=== PATIENT | male | born 1960 | race Two or more races ===

== ENCOUNTER 2018-01-22 23:18 | Emergency (ER) | payer BC ==
[~2018-01-22] VITALS: Ht 170.2 cm; Wt 90.7 kg
[~2018-01-22 23:18] MED LIST: ACYCLOVIR800 MG ORAL; AUGMENTIN 875-1 EAC1 ORAL; CIPRO500 MG/51 PO; CLINDAMYCIN HC300 MG ORAL; CLOTRIMAZOLE15 GM TOPIC; NKM; NORCO 5-325 TA1 EACH ORAL
[2018-01-22 23:50] VITALS: BP 120/83
[2018-01-23] MEDS ORDERED: AUGMENTIN 500-1 EACH ORAL (00:40)
[2018-01-23 00:49] VITALS: BP 0/0
--- NOTE | 2018-01-23 04:18 | Emergency Room Report ---
History of Present Illness General Chief Complaint: General Complaint Source: Patient Present Illness HPI Patient's a 57-year-old male who presented after increased discomfort to his left small finger. The patient reported having a splinter from a wooden frame which went through his finger. Patient denies any distal numbness or tingling. Injury occurred just prior to arrival. Patient denies any other locations of pain. He is unsure as to his last tetanus vaccine. Allergies: Coded Allergies: No Known Allergies (Unverified , 04/27/14) Patient History Reviewed Nursing Documentation: PMH: Agreed; PSxH: Agreed Nursing Documentation-PM Past Medical History: No Stated History Hx Cardiac Problems: No Hx Cancer: No Hx Gastrointestinal Problems: No Hx Neurological Problems: No Review of Systems All Other Systems: negative except mentioned in HPI Physical Exam Vital Signs Date Time Temp Pulse Resp B/P (MAP) Pulse Ox O2 Delivery O2 Flow Rate FiO2 01/22/18 23:41 98.0 73 18 120/83 99 Room Air 98.1 General Appearance: well appearing, no apparent distress, alert, GCS 15 Head: normocephalic, atraumatic ENT: hearing grossly normal, normal voice Neck: full range of motion, supple Respiratory: no respiratory distress, speaking full sentences Musculoskeletal: no calf tenderness Neurologic: normal inspection, alert, oriented x3, responsive, normal gait Psychiatric: mood/affect normal Skin: normal color, other - puncture wound with palpaple foreign body Medical Decision Making Diagnostic Impression: Primary Impression: Foreign body finger ER Course Patient presented for foreign body. Differential diagnosis included was not limited to infection, retained foreign body, abscess among others. Patient has a benign exam and does not appear to require any further imaging or laboratory testing at this time. Patient was noted to have evidence of foreign body. This initially. Be superficial and I attempted foreign body removal after local anesthesia. Was unable to remove the foreign body. The patient is referred to hand surgeon and advised follow-up 1-2 days. Patient is advised to return if any worsening condition or if any changes in status that are concerning. This report is dictated with [employer] general doc software which may occasionally lead to discrepancies related to use of this software. Last Vital Signs Date Time Temp Pulse Resp B/P (MAP) Pulse Ox O2 Delivery O2 Flow Rate FiO2 01/23/18 00:49 0/0 01/22/18 23:50 98.1 73 18 99 Room Air 98.1 Status: improved Disposition: HOME, SELF-CARE Condition: Stable Scripts Amoxicillin/Potassium Clav 500-125 Tablet* (AUGMENTIN 500-125 TABLET*) 1 Each Tablet 1 TAB ORAL THREE TIMES A DAY, #20 TAB Prov: Giovani Lo MD 01/23/18 Referrals: SRIDEVI HELLER M.D. NON PHYSICIAN (PCP) Patient Instructions: Wound Check Additional Instructions: follow up with hand surgeon for foreign body removal. Giovani Lo MD Jan 23, 2018 04:18
== END 2018-01-23 00:49 | disposition home or self-care (01) ==
LOC: EMR 01-23 00:24
DX: S60.457A Superficial foreign body of left little finger, initial encounter (principal); W45.8XXA Other foreign body or object entering through skin, initial encounter; Y92.9 Unspecified place or not applicable
CPT/HCPCS: 99283